=== PATIENT | male | born 1970 | race Caucasian/White ===

== ENCOUNTER → 2020-04-08 15:40 | Outpatient (CLI) | payer BC, SELFPAY | PROVIDERS: PCP Physician Assistant; Visit Provider Physician Assistant | DX: Z03.818 Encounter for observation for suspected exposure to other biological agents ruled out (principal) | CPT/HCPCS: U0003 ==

== ENCOUNTER → 2020-04-14 11:59 | Outpatient (CLI) | payer BC, SELFPAY ==
[2020-04-15 09:50] LABS: Covid-19 Nasal PCR Sendout Lex POSITIVE
== END ==
PROVIDERS: PCP Family Medicine; Visit Provider Physician Assistant
DX: Z20.828 Contact with and (suspected) exposure to other viral communicable diseases (principal); U07.1 COVID-19
CPT/HCPCS: U0004

== ENCOUNTER → 2020-09-08 10:22 | Outpatient (CLI) | payer BC, SELFPAY ==
--- NOTE | 2020-09-08 10:26 | XR_ITS ---
PROCEDURE: XR SHOULDER RT MIN 2V CLINICAL INDICATION: PAIN IN RT SHOULDER COMPARISON: No exams were available for comparison FINDINGS: No fracture or dislocation. No lytic or blastic change. There is normal mineralization. There are minimal osteoarthritic changes of the glenohumeral joint. No significant subacromial stenosis. Other findings:None. IMPRESSION: Minimal osteoarthritic change glenohumeral joint Dictated by: Radhames Gonzalez MD 09/08/2020 15:09 Radhames Gonzalez MD in [facility] 09/08/2020 15:09
== END ==
PROVIDERS: PCP Family Medicine; Visit Provider Family Medicine
DX: M25.511 Pain in right shoulder (principal)
CPT/HCPCS: 73030

== ENCOUNTER → 2023-07-26 15:58 | Outpatient (CLI) | payer BC, SELFPAY | LOC: SL 15:58 | PROVIDERS: PCP Family Medicine; Visit Provider Family Medicine | DX: E11.9 Type 2 diabetes mellitus without complications (principal); N52.9 Male erectile dysfunction, unspecified | CPT/HCPCS: G0399 ==